=== PATIENT | male | born 1975 | race Caucasian/White ===

== ENCOUNTER 2017-02-20 17:38 | Emergency (ER) | payer BC, SELFPAY ==
[2017-02-20] MEDS ORDERED: Lorazepam 2 MG/ML VIAL ONE ×3 (18:11→19:04)
[2017-02-20 18:22] LABS: #Basophils 0.1 thou/uL (0.0-0.2); #Lymphocytes 2.7 thou/uL (1.20-3.40); #Monocytes 0.9 thou/uL (0.11-0.59); #Neutrophils 9.3 thou/uL (1.40-6.50); %Basophils 0.5 % (0.0-1.0); %Eosinophils 0.4 % (0.0-10.0); %Lymphocytes 20.7 % (21.0-51.0); %Monocytes 6.8 % (0.0-10.0); %Neutrophils 71.6 % (42.0-75.0); Hemoglobin 15.4 g/dL (14.0-18.0); Mean Corpuscular HGB CONC 34.7 g/dL (32.0-36.0); Mean Corpuscular Hemoglobin 29.7 pg (27.0-31.0); Mean Corpuscular Volume 85.8 fl (80.0-94.0); Mean Platelet Volume 6.4 fL (7.4-10.4); Platelet Count 255 thou/uL (130-400); RBC Distribution Width 10.9 % (11.5-14.5); Red Blood Cell (RBC) Count 5.16 mill/uL (4.70-6.10); White Blood Cell (WBC) Count 12.9 thou/uL (4.8-10.8)
[2017-02-20 18:33] LABS: ALT (SGPT) 16 U/L (8-55); AST (SGOT) 20 U/L (5-34); Albumin 4.1 g/dL (3.5-5.0); Alkaline Phosphatase 89 U/L (40-150); Anion Gap 18 mmol/L (10-20); BUN (Urea Nitrogen) 13 mg/dL (8.9-20.6); Bilirubin, Total 1.8 mg/dL (0.2-1.2); Calc. Creatinine Clearance 0 mL/min (70-130); Calcium 9.8 mg/dL (7.8-10.44); Carbon Dioxide 13 mmol/L (22-29); Chloride 112 mmol/L (98-107); Estimated GFR-MDRD 72; Globulin 3.7 g/dL (2.4-3.5); Glucose 102 mg/dL (70-105); Potassium 3.6 mmol/L (3.5-5.1); Protein, Total 7.8 g/dL (6.0-8.3); Sodium 139 mmol/L (136-145)
--- NOTE | 2017-02-20 22:21 | RAD ---
PORTABLE CHEST 02/20/17 An AP portable film at 1750 is presented with no prior films available for comparison. The heart is normal in size. The mediastinum was unremarkable in appearance. There is no congestion, edema, or pleural effusion. There was a rounded density overlying the left 6th posterior rib. I canno t tell if this is a small 9 mm nodule in the lung itself or if this is in the rib and perhaps a prior injury. It might bear further followup electively, though my suspicion of it being significant is joya abbasi. IMPRESSION: 1. No acute findings. 2. 9 mm rounded density that may actually be within a left rib. Suspicion of significance is low , but a followup PA chest at least might be prudent. Code T POS: HOME
== END 2017-02-20 20:47 | disposition home or self-care (01) ==
LOC: BURERS 17:38
DX: F12.10 Cannabis abuse, uncomplicated (principal); F41.9 Anxiety disorder, unspecified; F17.210 Nicotine dependence, cigarettes, uncomplicated
CPT/HCPCS: 71045; 80053; 84443; 85025; 85379; 93005; 94760; 96361; 96374; 96376; J2060

== ENCOUNTER 2019-08-15 18:05 | Emergency (ER) | payer SELFPAY ==
[2019-08-15] MEDS ORDERED: Adacel (T-DAP) 0.5 ML SYRINGE ONE (19:15)
--- NOTE | 2019-08-15 19:35 | RAD ---
RIGHT HAND THREE VIEWS: 08/15/19 There are displaced fractures of the distal radius and the ulnar styloid process. The radial fracture is displaced somewhat laterally and anteriorly. The radial styloid process is angulated towards the radial side of the wrist as well. No opaque foreign bodies were seen. Soft tissue air is seen from th e lacerations. An old well healed fifth metacarpal fracture is noted. IMPRESSION: Displaced fractures of the distal radius and ulnar styloid process. POS: HOME
--- NOTE | 2019-08-15 19:37 | RAD ---
RIGHT WRIST THREE VIEWS: 08/15/19 Laterally displaced fractures of the distal radius and the ulnar styloid process are seen. There is c onsiderable soft tissue injury with soft tissue air. The carpal relationships are normal. An old well healed fracture of the fifth metacarpal is noted. IMPRESSION: Laterally displaced fractures of the distal radius and ulnar styloid process. POS: HOME
[2019-08-15] MEDS ORDERED: Morphine 4 MG/ML VIAL ONE (20:13)
[2019-08-15] MEDS ORDERED: Ondansetron PF 4 MG/2 ML Vial ONE (20:13)
[2019-08-15] MEDS ORDERED: CEFAZOLIN 1 GM VIAL ONE (20:13)
== END 2019-08-15 21:06 | disposition short-term general hospital (02) ==
LOC: BURERS 18:05
DX: S52.501A Unspecified fracture of the lower end of right radius, initial encounter for closed fracture (principal); S52.611A Displaced fracture of right ulna styloid process, initial encounter for closed fracture; F17.210 Nicotine dependence, cigarettes, uncomplicated; F41.9 Anxiety disorder, unspecified; W54.0XXA Bitten by dog, initial encounter
CPT/HCPCS: 90715; J0690; J2270; J2405

== ENCOUNTER 2022-03-11 18:26 | Emergency (ER) | payer SELFPAY ==
[2022-03-11] MEDS ORDERED: Ondansetron ODT 4 MG TAB ONE (18:57)
[2022-03-11] MEDS ORDERED: Dexamethasone 4 MG TAB ONE (18:57)
== END 2022-03-11 20:09 | disposition home or self-care (01) ==
LOC: BURERS 18:26
DX: J10.1 Influenza due to other identified influenza virus with other respiratory manifestations (principal); E86.9 Volume depletion, unspecified; F17.210 Nicotine dependence, cigarettes, uncomplicated
CPT/HCPCS: 87804; 99283; J8540; Q0162